=== PATIENT | male | born 1935 | race Caucasian/White ===

== ENCOUNTER 2020-01-02 14:08 | Inpatient (IN) | payer MEDICAID, MEDICARE ==
[~2020-01-02] VITALS: Ht 170.2 cm; Wt 91.6 kg
--- NOTE | 2020-01-02 | NUR ---
ROUNDS Patient is resting in bed, awake, breathing evenly and nonlabored on room air. Patient confused, needs frequent reorientation, assisted the patient to and from the bathroom. Fall/safety precautions, will continue to monitor. Addendum: 01/03/20 at 0330 by Emanuel Posada RN DISREGARD, ERROR
[2020-01-02 14:08] VITALS: BP_SYST 135
--- NOTE | 2020-01-02 14:08 | NUR ---
BROUGHT IN BY [facility] AND TRIAGED. REPORT GIVEN TO TONYA
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
--- NOTE | 2020-01-02 14:15 | NUR ---
SHERIFF SO AT PT BEDSIDE. PT CALM AND COOPERATIVE, NO DISTRESS AT THIS TIME
--- NOTE | 2020-01-02 14:30 | NUR ---
ER at bedside examining patient.
[2020-01-02 15:16] LABS: BASOPHILS # (AUTO) 0.1 K/uL (0.0-0.2); BASOPHILS % (AUTO) 1.1 % (0.0-2.0); EOSINOPHILS # (AUTO) 0.1 K/uL (0.0-0.4); EOSINOPHILS % (AUTO) 2.4 % (0.0-4.0); HEMOGLOBIN 14.4 g/dL (14.0-18.0); LYMPHOCYTES # (AUTO) 1.8 K/uL (1.0-5.5); LYMPHOCYTES % (AUTO) 38.3 % (20.5-51.5); MEAN CORPUSCULAR HEMOGLOBIN 32 pg (27-31); MEAN CORPUSCULAR HGB CONC 34 % (32-36); MEAN CORPUSCULAR VOLUME 93 fL (79.0-98.0); MONOCYTES # (AUTO) 0.6 K/uL (0.0-1.0); MONOCYTES % (AUTO) 13.3 % (1.7-9.3); NEUTROPHILS # (AUTO) 2.1 K/uL (1.8-7.7); NEUTROPHILS % (AUTO) 44.9 % (40.0-70.0); PLATELET COUNT (AUTO) 192 K/uL (130-430); RED BLOOD CELL COUNT(AUTO) 4.53 MIL/uL (4.2-6.2); RED CELL DISTRIBUTION WIDTH 13.1 % (9.0-15.0); WHITE BLOOD COUNT (AUTO) 4.7 K/uL (4.8-10.8)
[2020-01-02 15:17] LABS: ANION GAP 9 (5-15); CALCIUM 8.3 mg/dL (8.4-11.0); CHLORIDE 100 mmol/L (98-107); CREATININE 0.88 mg/dL (0.55-1.30); GLUCOSE 85 mg/dL (70-99); POTASSIUM 4.2 mmol/L (3.5-5.1); SODIUM SERUM 136 mmol/L (136-145); UREA NITROGEN, BLOOD 25 mg/dL (8-21)
[2020-01-02 15:28] LABS: ALANINE AMINOTRANSFERASE 41 U/L (12-78); ALBUMIN 3.6 g/dL (3.4-4.8); ASPARTATE AMINOTRANSFERASE 17 U/L (10-37); TOTAL BILIRUBIN 0.4 mg/dL (0.0-1.0)
--- NOTE | 2020-01-02 16:01 | NUR ---
PT RESTING IN BED COMFORTABLY, NO DISTRESS AT THIS TIME, PIT WORKER POWER SHOVEL AT BEDSIDE.
--- NOTE | 2020-01-02 16:07 | NUR ---
OFFICER SARAY CALLED BY [facility] TO LEAVE. IF PT DISCHARGED PLEASED CALL DETECTIVES AT STATION [phone].
--- NOTE | 2020-01-02 16:28 | NUR ---
PT AMBULATING AROUND EMERGENCY ROOM WITH STEADY GAIT.
[2020-01-02] MEDS ORDERED: ZIPRASIDONE HCL 20 MG CAPSULE (GEODON) PO ONE (16:30)
[2020-01-02] MEDS ORDERED: DIPHENHYDRAMINE INJ 50 MG/ML VIAL IM ONE (16:30)
--- NOTE | 2020-01-02 16:32 | NUR ---
REDIRECTED BACK TO BED OFTEN, SECURITY WATCHING PT .
--- NOTE | 2020-01-02 17:42 | NUR ---
DR CROSS HERE TO SEE AND EVALUATE PT.
[2020-01-02] MEDS ORDERED: ACETAMINOPHEN 325 MG TABLET PO PRN (17:45)
--- NOTE | 2020-01-02 18:10 | NUR ---
CALLED [facility] FOR BED. INFORMED THAT BED 132B WOULD BE BED BUT THEY NEED TIME FOR ROOM TO BE CLEANED.
--- NOTE | 2020-01-02 18:30 | NUR ---
CALLED [facility] BACK TO CHECK IN ON ROOM STATUS. INFORMED THAT PT WAS NOT TO BE SENT UNTIL ENVIRONMENTAL SERVICES TECHNICIAN. [facility] UNIT WAS INFORMED THE PT IS TO BE ADMITTED RIGHT AWAY.
--- NOTE | 2020-01-02 18:32 | NUR ---
MONI BENAVIDES SPOKEN WITH ABOUT PT STATUS. SHE STATED THEY WOULD NOT ACCEPT PATIENT UNTIL PRN ORDERS ARE WRITTEN BY DR CROSS. PT STATUS WAS REPORTED AND DR CROSS TO BE CONTACTED.
--- NOTE | 2020-01-02 18:40 | NUR ---
DR CROSS SPOKEN WITH AND INFORMED HER THAT [facility] REFUSED TO ACCEPT THE PT UNLESS A PRN ORDER WAS WRITTEN.
--- NOTE | 2020-01-02 19:00 | NUR ---
Patient will be admitted to care of DR CROSS. Admitted to [facility] unit. Will go to room 132B. Belongings list completed. Complete and up to date summary report printed. SBAR report to be given at bedside with opportunity for questions. REPORT GIVEN TO MAKAYLA.
[2020-01-02 19:30] VITALS: BP_SYST 109
--- NOTE | 2020-01-02 19:50 | NUR ---
OPENING NOTES Received report from KENNA Richmond. Patient was recently admitted to [facility] unit at 1911. Patient is sitting in bed, awake, alert, oriented x 1, breathing evenly and nonlabored on room air. Per RN, patient pulled off IV on the ER. Patient is refusing to have a new IV inserted. Educated patient on plan of care, fall/safety precautions, need for a sitter, patient unable to state understanding due to cognitive limitations. Bed is locked, armed, and at lowest position. Will continue to monitor.
[2020-01-02 20:00] VITALS: BP_SYST 109
[2020-01-02] MEDS: LORazepam 1 MG TABLET PO PRN (20:22)
--- NOTE | 2020-01-02 20:22 | NUR ---
MEDICATION/ROUNDS Patient is resting in bed, awake, breathing evenly and nonlabored on room air. Patient is agitated and confused, refuses to wear clothes and continues to walk to and from the bathroom. Educated patient on medication, patient unable to state understanding due to cognitive limitations. Administered medication, patient cooperated and tolerated it well. Fall/safety precautions, will continue to monitor.
--- NOTE | 2020-01-02 21:14 | NUR ---
CONSULTATION PAGED/CALLED Reason for Consultation: PSYCH Person Who was Notified: ERIN Consulting Physician: Marzipan Molder Specialty: PSYCH Ordering Physician:
--- NOTE | 2020-01-02 22:20 | NUR ---
ROUNDS Patient is resting in bed, awake, breathing evenly and nonlabored on room air. Patient is confused and needs frequent reorientation, assisted the patient to and from the bathroom several times. Fall/safety precautions, will continue to monitor.
--- NOTE | 2020-01-03 | NUR ---
ROUNDS Patient is resting in bed, awake, breathing evenly and nonlabored on room air. Patient confused, needs frequent reorientation, assisted the patient to and from the bathroom. Fall/safety precautions, will continue to monitor.
[2020-01-03 00:14] VITALS: BP_SYST 116
--- NOTE | 2020-01-03 01:50 | NUR ---
ROUNDS Patient is resting in bed, eyes closed, breathing evenly and nonlabored on room air. No s/s of distress at this time, no other needs at this time. Fall/safety precautions, will continue to monitor.
--- NOTE | 2020-01-03 04:00 | NUR ---
ROUNDS Patient is resting in bed, awake, breathing evenly and nonlabored on room air. Assisted patient to the bathroom. No s/s of distress at this time, no other needs at this time. Fall/safety precautions, will continue to monitor.
[2020-01-03] MEDS: LORazepam 1 MG TABLET PO PRN (06:26)
--- NOTE | 2020-01-03 06:33 | NUR ---
CLOSING NOTES Patient is resting in bed, awake, breathing evenly and nonlabored on room air. Patient still gets confused and agitated intermittently throughout the shift. Educated patient on medication, patient unable to state understanding due to cognitive limitations. Administered medication, patient cooperated and tolerated it well. Needs met throughout the shift. Fall/safety precautions, will endorse care to morning shift RN.
--- NOTE | 2020-01-03 07:10 | NUR ---
OPENING NOTES PT AWAKE AND CONFUSED. PT ON ROOM AIR, NONLABORED BREATHING NOTED. NO ACUTE DISTRESS NOTED. NO IV ACCESS. BED IN LOWEST AND LOCKED POSITION. ALL NEEDS MET. CALL LIGHT IN REACH. FALL AND ASPIRATION PRECAUTIONS IN PLACE. CONTINUE TO MONITOR.
[2020-01-03 07:52] VITALS: BP_SYST 121
--- NOTE | 2020-01-03 08:00 | NUR ---
PT SITTING ON EDGE OF BED EATING BREAKFAST, TOLERATING WELL. NO ACUTE DISTRESS NOTED. ALL NEEDS MET. CALL LIGHT IN REACH. CONTINUE TO MONITOR.
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
--- NOTE | 2020-01-03 10:00 | NUR ---
ASSISTED PT TO BATHROOM, TOLERATED WELL. NO ACUTE DISTRESS NOTED. ALL NEEDS MET. CALL LIGHT IN REACH. CONTINUE TO MONITOR.
--- NOTE | 2020-01-03 11:49 | NUR ---
ASSISTED PT TO BATHROOM,TOLERATED WELL. ASSISTED PT BACK TO CHAIR. NO ACUTE DISTRESS NOTED. ALL NEEDS MET. CALL LIGHT IN REACH. CONTINUE TO MONITOR.
[2020-01-03 12:00] VITALS: BP_SYST 113
[2020-01-03] MEDS ORDERED: FINA5TAB3 PO (13:25)
[2020-01-03] MEDS ORDERED: DONE10TA44 PO (13:25)
--- NOTE | 2020-01-03 13:26 | NUR ---
Emergency contact Chitra Sutherland/daughter [phone] , list of preferred pharmacy given with medication list.
--- NOTE | 2020-01-03 13:49 | NUR ---
PT SITTING IN CHAIR. NONLABORED BREATHING NOTED. NO ACUTE DISTRESS NOTED. ALL NEEDS MET. CALL LIGHT IN REACH. CONTINUE TO MONITOR.
[2020-01-03] MEDS ORDERED: FINASTERIDE 5 MG TABLET (PROSCAR) PO ONE (14:00)
[2020-01-03] MEDS ORDERED: DONEPEZIL HCL 5 MG TABLET (ARICEPT) PO ONE (14:00)
--- NOTE | 2020-01-03 14:40 | NUR ---
CONSULTATION PAGED REASON FOR CONSULTATION:DEMENTIA WITH [facility] WAS CONSULT CALLED?Y PERSON WHO WAS NOTIFIED:CLARICE CONSULTING PHYSICIAN:JOSE GRIRE RISK CONTROL OFFICER SPECIALTY:NEURO RISK CONTROL OFFICER PHONE NUMBER:[phone] REQUESTING PHYSICIAN:SPRING ALMONTE
--- NOTE | 2020-01-03 14:45 | NUR ---
PT TAKEN TO CT SCAN. OFF THE FLOOR.
--- NOTE | 2020-01-03 15:00 | NUR ---
PATIENT BACK ON FLOOR FROM CT SCAN Addendum: 01/03/20 at 1531 by Amira Connolly RN PT STABLE. NO ACUTE DISTRESS NOTED. ALL NEEDS MET. CALL LIGHT IN REACH. CONTINUE TO MONITOR.
[2020-01-03 16:00] VITALS: BP_SYST 117
--- NOTE | 2020-01-03 16:45 | NUR ---
ROUNDS PT RESTING IN BED, CHEST RISE AND FALL NOTED. NONLABORED BREATHING NOTED. NO ACUTE DISTRESS NOTED. ALL NEEDS MET. CALL LIGHT IN REACH. CONTINUE TO MONITOR.
--- NOTE | 2020-01-03 18:40 | NUR ---
PT SITTING UP ON THE EDGE OF THE BED EATING DINNER, TOLERATING WELL. NO ACUTE DISTRESS NOTED. ALL NEEDS MET. CALL LIGHT IN REACH. CONTINUE TO MONITOR.
--- NOTE | 2020-01-03 18:45 | NUR ---
CLOSING NOTES PT AWAKE AND CONFUSED. NONLABORED BREATHING NOTED. NO ACUTE DISTRESS NOTED. NO IV LINE NOTED. BED LOCKED AND IN LOWEST POSITION. ALL NEEDS MET. CALL LIGHT IN REACH. FALL AND ASPIRATION PRECAUTIONS IN PLACE. WILL ENDORSE TO NOC NURSE.
[2020-01-03 20:19] VITALS: BP_SYST 143
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
--- NOTE | 2020-01-03 20:38 | NUR ---
patient out of bed AMBULATING in ROOM CONFUSED at times SAFETY FALL MEASURES EFFECTIVE continue to monitor / .
[2020-01-03] MEDS: QUEtiapine FUMARATE 25 MG TABLET PO SCH (22:26)
--- NOTE | 2020-01-03 22:48 | NUR ---
SEROquel 50mg po ADMINISTER as ordered patient is agitated & ambulatory .
[2020-01-04 01:27] VITALS: BP_SYST 141
--- NOTE | 2020-01-04 04:15 | NUR ---
ASSIST PATIENT OUT OF BED AMBULATED UNSTEADY GAIT fall measures implemented SAFETY MEASURES EFFECTIVE .
--- NOTE | 2020-01-04 05:00 | NUR ---
FALL MEASURES assist patient out of bed to Rest room unsteady gait noted .
--- NOTE | 2020-01-04 07:15 | NUR ---
Received patient and report from [facility] shift nurse. Patient in chair, sitting, awake, alert. In no acute distress. Denies pain.
[2020-01-04 08:00] VITALS: BP_SYST 125
[2020-01-04] MEDS: QUEtiapine FUMARATE 25 MG TABLET PO SCH ×3 (08:12→21:12)
[2020-01-04] MEDS: FINASTERIDE 5 MG TABLET (PROSCAR) PO SCH (08:12)
[2020-01-04] MEDS: DONEPEZIL HCL 5 MG TABLET (ARICEPT) PO SCH (08:13)
--- NOTE | 2020-01-04 09:15 | NUR ---
Patient in chair, sitting, awake, alert. In no acute distress. Denies pain.
--- NOTE | 2020-01-04 11:15 | NUR ---
Patient awake, alert, walking around room. In no acute distress. Denies pain.
[2020-01-04 12:00] VITALS: BP_SYST 129
--- NOTE | 2020-01-04 13:15 | NUR ---
Redirected patient after attempting to eat off room mate's tray. Walked with patient.
--- NOTE | 2020-01-04 15:15 | NUR ---
Walked patient in hallway after patient attempted to go into other rooms. Redirected patient.
[2020-01-04] MEDS: LORazepam 1 MG TABLET PO PRN (15:22)
[2020-01-04 16:00] VITALS: BP_SYST 129
--- NOTE | 2020-01-04 19:12 | NUR ---
recieved with no iv access and asleep,able to turn to sides/
--- NOTE | 2020-01-04 19:29 | NUR ---
ambulated to the bathroom to void and assited back to bed.
[2020-01-04 19:55] VITALS: BP_SYST 113
--- NOTE | 2020-01-04 23:01 | NUR ---
TRANSFER OF CARE Received report from KENNA Cleary. Patient is resting in bed, eyes closed, breathing evenly and nonlabored on room air. Per RN, patient refused to have a new IV inserted and continues to be confused/agitated intermittently. No s/s of distress at this time, no other needs at this time. Bed is locked, armed, and at lowest position. Will continue to monitor.
[2020-01-05 00:28] VITALS: BP_SYST 117
--- NOTE | 2020-01-05 01:52 | NUR ---
ROUNDS Patient is resting in bed, eyes closed, breathing evenly and nonlabored on room air. No s/s of distress at this time, no other needs at this time. Fall/safety precautions, will continue to monitor. Addendum: 01/05/20 at 0155 by Emanuel Posada RN assisted patient to the bathroom at 0030.
--- NOTE | 2020-01-05 01:53 | NUR ---
assisted patient to the bathroom at 0030. Addendum: 01/05/20 at 0156 by Emanuel Posada RN disregard, duplicate
[2020-01-05] MEDS: LORazepam 1 MG TABLET PO PRN ×2 (02:51→11:50)
--- NOTE | 2020-01-05 02:51 | NUR ---
PRN MEDICATION GIVEN FOR AGITATION Patient is resting in bed, awake, breathing evenly and nonlabored. Patient was agitated and continuously kicking the foot of the bed. Educated patient on medication, patient unable to state understanding due to cognitive limitations. Administered medication, patient cooperated and tolerated it well. No other needs at this time. Fall/safety precautions.
--- NOTE | 2020-01-05 06:23 | NUR ---
CLOSING NOTES Patient is resting in bed, eyes closed, breathing evenly and nonlabored on room air. Patient still gets confused and agitated intermittently throughout the shift. Needs met throughout the shift. Fall/safety precautions, will endorse care to morning shift RN.
--- NOTE | 2020-01-05 07:19 | NUR ---
Received report and patient from [facility] shift nurse. Patient in bed sleeping with side rails x 3 up. Call light with in reach. In no acute distress. Breathing even and unlabored.
[2020-01-05 08:00] VITALS: BP_SYST 103
[2020-01-05] MEDS: FINASTERIDE 5 MG TABLET (PROSCAR) PO SCH (08:24)
[2020-01-05] MEDS: DONEPEZIL HCL 5 MG TABLET (ARICEPT) PO SCH (08:24)
[2020-01-05] MEDS: QUEtiapine FUMARATE 25 MG TABLET PO SCH ×2 (08:25→14:13)
--- NOTE | 2020-01-05 09:19 | NUR ---
Attempted to assist patient to the bathroom, patient urinated on floor. Gave patient bed bath, performed oral care, change gown, changed linen.
--- NOTE | 2020-01-05 10:21 | NUR ---
CONSULTATION PAGED REASON FOR CONSULTATION:POSSIBLE TIA, S/P PRESYNCOPE WITH H/O DM AND PRIOR WAS CONSULT CALLED?Y PERSON WHO WAS NOTIFIED:YASMEEN CONSULTING PHYSICIAN:JOSE GRIER ([employer] T[employer] AND ROD STRAIGHTENER) COMPENSATION ADVISOR SPECIALTY:NEURO COMPENSATION ADVISOR PHONE NUMBER:[phone] REQUESTING PHYSICIAN:SPRING ALMONTE
--- NOTE | 2020-01-05 11:19 | NUR ---
Redirected patient after patient attempted to take gown off and go into other patient's room.
[2020-01-05 12:00] VITALS: BP_SYST 122
[2020-01-05] MEDS ORDERED: QUET50TA PO (12:54)
--- NOTE | 2020-01-05 13:19 | NUR ---
Patient sitting in bed eating, awake, alert. Denies pain. In no acute distress.
[2020-01-05 15:14] VITALS: BP_SYST 122
--- NOTE | 2020-01-05 15:45 | NUR ---
Went over discharge summary and instructions with medication reconciliation with carol Buenrostro. Carol Buenrostro signed discharge summary and instructions. Informed daughter patient is requested to go to appointment with medication list with MD Montez and MD Solis. Daughter agreed to schedule appointment. Went over personal belongings and verified with carol Buenrostro. Provided daughter with written prescription from MD Montez for Seroquel. Daughter pleased with care and stated thank you. Assisted patient to private automobile after answering all questions carol Buenrostro requested information on. Patient denies pain, vital signs stable, in no acute distress. Breathing even and unlabored. Patient left facility at 1530.
== END 2020-01-05 15:30 | disposition home or self-care (01) | DRG 42 ==
LOC: SED 14:08 → SMU 17:52
PROVIDERS: ADMIT Internal Medicine; ATTEND Internal Medicine
DX: G31.09 Other frontotemporal neurocognitive disorder (principal); N40.0 Benign prostatic hyperplasia without lower urinary tract symptoms; R62.7 Adult failure to thrive; Z91.14 Patient's other noncompliance with medication regimen; Z79.899 Other long term (current) drug therapy; Z68.31 Body mass index [BMI] 31.0-31.9, adult
CPT/HCPCS: 36415; 70450-TC; 71045; 80053; 84443-TC; 84484; 85025; 96372; 99285; J1200

== ENCOUNTER 2020-09-01 15:39 | Emergency (ER) | payer MEDICARE, MEDICAID ==
[~2020-09-01] VITALS: Ht 172.7 cm; Wt 79.4 kg
[2020-09-01 15:39] VITALS: BP_SYST 111
[~2020-09-01 15:39] MED LIST: DONE10TA44 PO; FINA5TAB3 PO; QUET50TA PO
[2020-09-01] MEDS ORDERED: DIPHENHYDRAMINE INJ 50 MG/ML VIAL IM ONE (16:30)
[2020-09-01 16:44] LABS: BASOPHILS # (AUTO) 0.1 K/uL (0.0-0.2); BASOPHILS % (AUTO) 0.9 % (0.0-2.0); EOSINOPHILS # (AUTO) 0.1 K/uL (0.0-0.4); EOSINOPHILS % (AUTO) 2.3 % (0.0-4.0); HEMATOCRIT 45.8 % (36-54); HEMOGLOBIN 15.4 g/dL (14.0-18.0); LYMPHOCYTES # (AUTO) 2.2 K/uL (1.0-5.5); LYMPHOCYTES % (AUTO) 34.7 % (20.5-51.5); MEAN CORPUSCULAR HEMOGLOBIN 32 pg (27-31); MEAN CORPUSCULAR HGB CONC 34 % (32-36); MEAN CORPUSCULAR VOLUME 95 fL (79.0-98.0); MONOCYTES # (AUTO) 0.7 K/uL (0.0-1.0); NEUTROPHILS # (AUTO) 3.2 K/uL (1.8-7.7); NEUTROPHILS % (AUTO) 51.1 % (40.0-70.0); PLATELET COUNT (AUTO) 210 K/uL (130-430); RED BLOOD CELL COUNT(AUTO) 4.85 MIL/uL (4.2-6.2); RED CELL DISTRIBUTION WIDTH 13.5 % (9.0-15.0); WHITE BLOOD COUNT (AUTO) 6.2 K/uL (4.8-10.8)
[2020-09-01] MEDS ORDERED: DIPHENHYDRAMINE INJ 50 MG/ML VIAL ONE (16:52)
[2020-09-01 17:06] LABS: ANION GAP 10 (5-15); CALCIUM 8.8 mg/dL (8.4-11.0); CHLORIDE 106 mmol/L (98-107); CREATININE 1.07 mg/dL (0.55-1.30); GLUCOSE 103 mg/dL (70-99); POTASSIUM 4.1 mmol/L (3.5-5.1); SODIUM SERUM 142 mmol/L (136-145); UREA NITROGEN, BLOOD 24 mg/dL (8-21)
[2020-09-01 17:12] LABS: ALANINE AMINOTRANSFERASE 50 U/L (12-78); ALBUMIN 3.9 g/dL (3.4-4.8); ASPARTATE AMINOTRANSFERASE 29 U/L (10-37); TOTAL BILIRUBIN 0.5 mg/dL (0.0-1.0)
[2020-09-01 19:02] VITALS: BP_SYST 111
== END 2020-09-01 19:02 | disposition home or self-care (01) ==
LOC: SED 15:39
DX: F03.90 Unspecified dementia, unspecified severity, without behavioral disturbance, psychotic disturbance, mood disturbance, and anxiety (principal)
CPT/HCPCS: 36415; 70450; 71045; 80053; 85025; 96372; 99285; J1200